=== PATIENT | female | born 1995 | race Caucasian/White ===

== ENCOUNTER 2022-11-13 02:35 | Emergency (ER) | payer OTHER ==
[~2022-11-13] VITALS: Ht 160 cm; Wt 77.1 kg
[2022-11-13 02:39] VITALS: BP 116/72
--- NOTE | 2022-11-13 02:39 | NUR ---
[facility] TO BED #11
[2022-11-13 03:07] LABS: BASOPHILS # (AUTO) 0.1 K/uL (0.00-0.22); BASOPHILS % (AUTO) 0.4 % (0.0-2.0); EOSINOPHILS # (AUTO) 0.2 K/uL (0-0.4); EOSINOPHILS % (AUTO) 1.2 % (0.0-4.0); HEMOGLOBIN 12.3 g/dL (12.0-16.0); LYMPHOCYTES # (AUTO) 2.2 K/uL (2.5-16.5); LYMPHOCYTES % (AUTO) 10.9 % (20.5-51.1); MEAN CORPUSCULAR HEMOGLOBIN 28 pg (27-31); MEAN CORPUSCULAR HGB CONC 33 g/dL (33-37); MEAN CORPUSCULAR VOLUME 85.7 fL (80-94); MONOCYTES # (AUTO) 1.5 K/uL (0.8-1.0); MONOCYTES % (AUTO) 7.1 % (1.7-9.3); NEUTROPHILS # (AUTO) 16.5 K/uL (1.8-7.7); NEUTROPHILS % (AUTO) 80.4 % (42.2-75.2); PLATELET COUNT (AUTO) 417 K/uL (140-450); RED BLOOD CELL COUNT(AUTO) 4.32 MIL/uL (4.20-5.40); RED CELL DISTRIBUTION WIDTH 13.7 % (11.6-13.7); WHITE BLOOD COUNT (AUTO) 20.5 K/uL (4.8-10.8)
[2022-11-13 03:26] LABS: ALBUMIN 3.9 g/dL (3.4-5.0); ANION GAP 14.9 (8-16); CARBON DIOXIDE 27.6 mmol/L (21-32); CREATININE 0.8 mg/dL (0.6-1.3); POTASSIUM 3.5 mmol/L (3.5-5.1)
[2022-11-13] MEDS ORDERED: KETOROLAC 15 MG/ML VIAL IVP ONE (03:35)
[2022-11-13] MEDS ORDERED: NACL 0.9% 2,000 ML IV ONE (03:35)
[2022-11-13] MEDS ORDERED: ONDANSETRON 4 MG/2 ML VIAL IVP ONE (03:35)
[2022-11-13 04:58] LABS: APPEARANCE,URINE CLEAR (CLEAR); BILIRUBIN,URINE SMALL (NEGATIVE); BLOOD, URINE NEGATIVE (NEGATIVE); COLOR,URINE YELLOW (YELLOW); LEUKOCYTE ESTERASE ,URINE NEGATIVE (NEGATIVE); NITRITE, URINE NEGATIVE (NEGATIVE); UGLUCOSE NEGATIVE (NEGATIVE)
[2022-11-13 07:01] VITALS: BP 108/64
--- NOTE | 2022-11-13 07:10 | NUR ---
CALLED REPORT TO ALFONSO AT [facility] ([phone]), PATIENT WILL BE TRANSFERRING TO THE CARE OF DR. LAMB AND WILL BE PLACEDE IN ROOM 2143 PROVIDED CURRENT VITALS AND LIPASE VALUE. TRANSPORT ARRANGED BY [facility] FROM [facility]; WILL ARRIVE WITHIN 45 MINUTES TO HR. DX: GALLSTONES, PANCREATITIS, TRANAMINITIS, DEHYDRATION, NAUSEA/VOMITING
--- NOTE | 2022-11-13 07:18 | NUR ---
Pt report given to MARIO. Transfer of care at this time.
--- NOTE | 2022-11-13 07:30 | NUR ---
TRANSPORT [facility] TO [facility] AT THIS TIME
--- NOTE | 2022-11-13 07:45 | NUR ---
Report given to [facility] client support professional for transport to [facility]. Pt in stable condition, vss, no ss of acute distress, breathing equal and unlabored. Packet given to transport.
== END 2022-11-13 07:58 | disposition short-term general hospital (02) ==
LOC: MED 02:35
DX: K85.90 Acute pancreatitis without necrosis or infection, unspecified (principal); Z20.822 Contact with and (suspected) exposure to COVID-19; K80.20 Calculus of gallbladder without cholecystitis without obstruction; R11.2 Nausea with vomiting, unspecified; E86.0 Dehydration; Z88.0 Allergy status to penicillin
CPT/HCPCS: 36415; 76705; 80053; 81003; 81025; 83690; 85025; 87040; 87426; 96361; 96374; 96375; 99285; J1885; J2405; Q0092; J7030

== ENCOUNTER 2024-07-20 21:40 | Emergency (ER) | payer OTHER ==
[~2024-07-20] VITALS: Ht 154.9 cm; Wt 86.2 kg
[2024-07-20 21:47] VITALS: BP 120/80; PULSE 89; RESP 18; TEMP 98.2; O2SAT 97
[2024-07-20] MEDS: predniSONE 20 MG TAB PO ONE (22:23)
[2024-07-20] MEDS: ALBUTEROL SULFATE/IPRATROPIU 3 ML SOL IH ONE (22:26)
[2024-07-20] MEDS: ALBUTEROL 0.083% 2.5 MG/3 ML NEBU INH ONE (22:26)
[2024-07-20 22:31] VITALS: PULSE 78; PULSE 90; RESP 12; O2SAT 97
[2024-07-20] MEDS ORDERED: ALBU0.0912 INH (22:33)
[2024-07-20] MEDS ORDERED: PRED20TA5 PO (22:33)
[2024-07-20 22:48] VITALS: BP 120/80; PULSE 90; RESP 12; TEMP 98.2; O2SAT 97
== END 2024-07-20 22:48 | disposition home or self-care (01) ==
LOC: MED 21:40
DX: R06.02 Shortness of breath (principal); R07.89 Other chest pain; Z90.49 Acquired absence of other specified parts of digestive tract; Z88.0 Allergy status to penicillin
CPT/HCPCS: 94640; 99283; J7512; J7613